=== PATIENT | female | born 1950 | race Caucasian/White ===

== ENCOUNTER → 2018-01-22 | Day surgery (SDC) | payer MEDICARE, OTHER ==
[~2018-01-22] VITALS: Ht 160 cm; Wt 68.5 kg
[~2018-01-22] MED LIST: ADVIL200 MG PO; ARAVA20 MG PO; AZO-STANDARD95 MG PO; FOLIC ACID1 MG PO; METHOTREXATE2.5 M1 PO; MICRO-K10 MEQ PO; MYRBETRIQ50 M1 PO; REGLAN5 MG PO; VESICARE10 MG PO; ZYRTEC10 MG PO
--- NOTE | ~2018-01-22 | O ---
[place], [place] OPERATIVE NOTE NAME: MUNA HADDAD UNIT #: [id number] ROOM: DOCTOR: GRETCHEN RAMSAY MD BIRTHDATE: [birth year] DOS: 01/22/2018 PSYCHIATRIC CONSULTATION NOTE: A 67-year-old patient was presented with chief complaint of concern about colonic screening, undergoing investigation. ALLERGIES: SULFA. FAMILY HISTORY: LATEX. PAST MEDICAL HISTORY: Rheumatoid arthritis, hypertension. PAST SURGICAL HISTORY: Right breast benign biopsy. SOCIAL HISTORY: Nonsmoker, nonalcohol consumer. PROCEDURE: Today's procedure part of investigation is colonoscopy. PREMEDICATION: Propofol. SCOPE: Olympus forward-viewing colonoscope 10L video. REPORT: After putting the patient in left lateral position and application of lubricant to the scope, the scope was introduced. Thereafter, under direct visualization, passed through the length of colon without difficulty. Evidence of diverticulosis was noticed. Base of cecum approach, retained semi-liquid stool in the cecum and mid ascending colon noticed, photographed. No gross intraluminal pathology identified. Air was suctioned out gradually from ascending, transverse, descending colon. The patient extubated, tolerated the procedure well. IMPRESSION: Diverticulosis with fare colonic prep. PLAN AND DISCUSSION: High fiber fruit diet. ACTIVITY: Ad nader. FOLLOWUP: Routinely with you in office, p.r.n. visit with us in [facility]. [place], [place] OPERATIVE NOTE NAME: MUNA HADDAD UNIT #: [id number] ROOM: DOCTOR: GRETCHEN RAMSAY MD BIRTHDATE: [birth year] GRETCHEN RAMSAY MD CM:OPRECORD:OPERATIVE NOTE 1404 [id number] GRETCHEN RAMSAY MD 01/22/18 1428 interface
[2018-01-22 12:22] VITALS: BP 169/87
[2018-01-22 13:58] VITALS: BP 121/57
[2018-01-22 14:13] VITALS: BP 145/80
[2018-01-22 14:28] VITALS: BP 130/67
== END | disposition home or self-care (01) ==
LOC: SDC 01-19 09:30
DX: Z12.11 Encounter for screening for malignant neoplasm of colon (principal); K57.30 Diverticulosis of large intestine without perforation or abscess without bleeding; K21.9 Gastro-esophageal reflux disease without esophagitis; I10 Essential (primary) hypertension; M06.9 Rheumatoid arthritis, unspecified; Z98.890 Other specified postprocedural states; Z88.1 Allergy status to other antibiotic agents; Z79.899 Other long term (current) drug therapy
CPT/HCPCS: 00812; G0121

== ENCOUNTER → 2023-04-21 | Outpatient (CLI) | payer MEDICARE, OTHER | END | disposition home or self-care (01) | LOC: US 04-17 02:18 | PROVIDERS: ATTEND Nurse Practitioner Family | DX: K76.0 Fatty (change of) liver, not elsewhere classified (principal); I10 Essential (primary) hypertension; E78.5 Hyperlipidemia, unspecified; Z85.828 Personal history of other malignant neoplasm of skin ==